=== PATIENT | female | born 1950 | race Caucasian/White ===

== ENCOUNTER 2021-09-02 13:11 | Outpatient (CLI) | payer MEDICARE, SELFPAY ==
--- NOTE | 2021-09-02 13:30 | CT_ITS ---
WS: [email or web address] CT CHEST CT-HIGH RESOLUTION, NONCONTRAST. HISTORY: High calcium. Technique: High-resolution chest CT is performed in inspiration, expiration, supine and prone maylino rahul. All CT scans at [facility] use at least one of these dose optimization techniques: automated exposure control; mA and/or kV adjustment per patient size (includes targeted exams where dose is mat ched to clinical indication); or iterative reconstruction. DLP: 1927.95 mGy.cm COMPARISON: None. Findings: Lungs are well aerated. No honeycombing or traction bronchiectasis. No significant thickeni ng of the distal airways. There are no areas of atelectasis. No lobar collapse or pneumonia. No endob ronchial lesions. No pericardial or pleural effusions. Mild atherosclerosis aorta. Heart size is very mildly enlarged. Small hiatal hernia. Nonobstructing calcification upper pole of the LEFT no adrenal mass. Cholelithia sis without acute cholecystitis. Kidney. CT/CT chest wo con [id number] Impression: 1. No evidence for interstitial lung disease. 2. No honeycombing or bronchiectasis. 3. No pneumonia. 4. Cholelithiasis without acute cholecystitis.
== END 2021-09-02 13:12 | disposition home or self-care (01) ==
PROVIDERS: Visit Provider Internal Medicine Pulmonary Disease
DX: D86.9 Sarcoidosis, unspecified (principal); J84.9 Interstitial pulmonary disease, unspecified; K80.20 Calculus of gallbladder without cholecystitis without obstruction
CPT/HCPCS: 71250

== ENCOUNTER 2022-01-19 08:22 | Outpatient (CLI) | payer MEDICARE, SELFPAY ==
--- NOTE | 2022-01-19 08:33 | MM_ITS ---
WS: [email or web address] SCREENING DIGITAL BREAST TOMOSYNTHESIS MAMMOGRAM WITH CAD HISTORY: Z12.31 - Encounter for screening mammogram for malignant ... COMPARISON: 05/16/2017 and 08/02/2012 Bilateral CC and MLO with tomosynthesis views submitted. Synthetic mammography reviewed. Computer aid ed detection analyzed. Breast composition: There are scattered areas of fibroglandular density. No suspicious masses, microc alcifications or architectural distortion. MM/[place] [id number] IMPRESSION: BI-RADS: 1-Negative FOLLOW UP: 1 Year Follow-up
== END 2022-01-19 08:23 | disposition home or self-care (01) ==
PROVIDERS: PCP Family Medicine; Visit Provider Family Medicine
DX: Z12.31 Encounter for screening mammogram for malignant neoplasm of breast (principal)
CPT/HCPCS: 77063; 77067

== ENCOUNTER → 2022-06-02 13:33 | Outpatient (BNVA) | payer MEDICARE, SELFPAY | PROVIDERS: PCP Family Medicine; Visit Provider Family Medicine | DX: R05.9 Cough, unspecified (principal); R50.9 Fever, unspecified | CPT/HCPCS: 87400 ==

== ENCOUNTER → 2022-11-02 08:54 | Outpatient (BNVA) | payer MEDICARE, SELFPAY | PROVIDERS: PCP Family Medicine; Visit Provider Family Medicine | DX: I10 Essential (primary) hypertension (principal); D64.9 Anemia, unspecified; E78.5 Hyperlipidemia, unspecified; E11.9 Type 2 diabetes mellitus without complications; E55.9 Vitamin D deficiency, unspecified | CPT/HCPCS: 80053; 80061; 82306; 83036; 84443; 85025 ==

== ENCOUNTER → 2023-01-09 08:49 | Outpatient (BNVA) | payer MEDICARE, SELFPAY | PROVIDERS: PCP Family Medicine; Visit Provider Family Medicine | DX: E11.9 Type 2 diabetes mellitus without complications (principal) | CPT/HCPCS: 80048 ==

== ENCOUNTER 2023-01-30 10:13 | Outpatient (CLI) | payer MEDICARE, SELFPAY ==
--- NOTE | 2023-01-30 10:30 | MM_ITS ---
WS: [email or web address] BILATERAL SCREENING DIGITAL TOMOSYNTHESIS MAMMOGRAM WITH CAD HISTORY: SCREENING COMPARISON: 01/19/2022, 05/16/2017 Bilateral CC and MLO views with tomosynthesis and synthetic mammography submitted. Computer aided det ection analyzed. Breast composition: There are scattered areas of fibroglandular density. No suspicious masses, microc alcifications or architectural distortion. MM/[place] [id number] IMPRESSION: BI-RADS: 1-Negative FOLLOW UP: 1 Year Follow-up
== END 2023-01-30 10:14 | disposition home or self-care (01) ==
PROVIDERS: PCP Family Medicine; Visit Provider Family Medicine
DX: Z12.31 Encounter for screening mammogram for malignant neoplasm of breast (principal)
CPT/HCPCS: 77063; 77067

== ENCOUNTER → 2023-07-06 12:07 | Outpatient (BNVA) | payer MEDICARE, SELFPAY | PROVIDERS: PCP Family Medicine; Visit Provider Nurse Practitioner Family | DX: E11.9 Type 2 diabetes mellitus without complications (principal); I10 Essential (primary) hypertension; E78.5 Hyperlipidemia, unspecified | CPT/HCPCS: 80053; 80061; 82043; 83036; 83721 ==

== ENCOUNTER → 2024-01-25 11:14 | Outpatient (BNVA) | payer MEDICARE, SELFPAY | PROVIDERS: PCP Family Medicine; Visit Provider Nurse Practitioner Family | DX: I10 Essential (primary) hypertension (principal); E78.2 Mixed hyperlipidemia; E11.59 Type 2 diabetes mellitus with other circulatory complications; Z79.4 Long term (current) use of insulin; I65.23 Occlusion and stenosis of bilateral carotid arteries | CPT/HCPCS: 80053; 80061; 83036; 83721; 85025 ==

== ENCOUNTER 2024-02-01 11:07 | Outpatient (CLI) | payer MEDICARE, SELFPAY ==
--- NOTE | 2024-02-01 11:08 | MM_ITS ---
WS: [email or web address] BILATERAL SCREENING DIGITAL TOMOSYNTHESIS MAMMOGRAM WITH CAD HISTORY: Screening COMPARISON: 01/19/2022, 01/30/2023, 08/02/2012 Bilateral CC and MLO views with tomosynthesis and synthetic mammography submitted. Computer aided det ection analyzed. Breast composition: There are scattered areas of fibroglandular density. No suspicious masses, microc alcifications or architectural distortion. Long-term stability of an ovoid mass measuring 10 x 6 mm i n the posterior RIGHT breast. This mass has been present since at least 2012 with no change. No suspi cious grouping of calcifications. MM/[place] [id number] IMPRESSION: BI-RADS: 2-Benign FOLLOW UP: 1 Year Follow-up
== END 2024-02-01 11:08 | disposition home or self-care (01) ==
LOC: RAD 11:08
PROVIDERS: PCP Family Medicine; Visit Provider Family Medicine
DX: Z12.31 Encounter for screening mammogram for malignant neoplasm of breast (principal)
CPT/HCPCS: 77063; 77067

== ENCOUNTER 2024-06-20 14:53 | Outpatient (CLI) | payer MEDICARE, SELFPAY ==
--- NOTE | 2024-06-20 15:00 | XR_ITS ---
WS: [email or web address] SCREENING DEXA SCAN [employer]yx CLINICAL INFORMATION: Z78.0 - Asymptomatic menopausal state COMPARISON: None. FINDINGS: The LEFT forearm bone mineral density measures 0.612. This corresponds to a T score score of -3.0 and Z score of -0.8. Left femoral neck bone mineral density measures 0.737 g/cm2. This corresponds to a T score of -2.1 an d Z score of -0.3. Right femoral neck bone mineral density measures 0.739 g/cm2. This corresponds to a T score -2.1of an d Z score of -0.3. Mean femoral neck bone mineral density measures 0.738 g/cm2. This corresponds to a T score of -2.1 an d Z score of -0.3. XR/XR DEXA axial skeleton* [id number] IMPRESSION: Osteoporosis LEFT forearm. Osteopenia femoral necks. Patient's FRAX calculated 10 year probability for major osteoporotic fracture i s 36.2% and osteoporotic hip fracture is 26.3%.
== END 2024-06-20 14:54 | disposition home or self-care (01) ==
PROVIDERS: PCP Nurse Practitioner Family; Visit Provider Nurse Practitioner Family
DX: Z13.820 Encounter for screening for osteoporosis (principal); M81.0 Age-related osteoporosis without current pathological fracture; Z78.0 Asymptomatic menopausal state
CPT/HCPCS: 77080

== ENCOUNTER 2024-07-03 06:00 | Outpatient (RCR) | payer MEDICARE, SELFPAY | END 2024-08-02 23:59 | disposition home or self-care (01) | LOC: TPT 06:00 | PROVIDERS: PCP Nurse Practitioner Family; Visit Provider Nurse Practitioner Family | DX: S46.111S Strain of muscle, fascia and tendon of long head of biceps, right arm, sequela (principal); X58.XXXS Exposure to other specified factors, sequela | CPT/HCPCS: 97110; 97161 ==

== ENCOUNTER → 2024-07-10 14:35 | Outpatient (BNVA) | payer MEDICARE, SELFPAY | PROVIDERS: PCP Nurse Practitioner Family; Visit Provider Nurse Practitioner Family | DX: E11.59 Type 2 diabetes mellitus with other circulatory complications (principal); I65.23 Occlusion and stenosis of bilateral carotid arteries; Z79.4 Long term (current) use of insulin; Z79.899 Other long term (current) drug therapy | CPT/HCPCS: 80053; 80061; 82043; 82306; 83036; 83721; 84443; 85025 ==

== ENCOUNTER 2024-08-03 06:30 | Outpatient (RCR) | payer MEDICARE, SELFPAY | END 2024-08-30 23:59 | disposition home or self-care (01) | LOC: TPT 06:30 | PROVIDERS: PCP Nurse Practitioner Family; Visit Provider Nurse Practitioner Family | DX: S46.111S Strain of muscle, fascia and tendon of long head of biceps, right arm, sequela (principal); X58.XXXS Exposure to other specified factors, sequela | CPT/HCPCS: 97110 ==

== ENCOUNTER 2024-08-31 06:00 | Outpatient (RCR) | payer MEDICARE, SELFPAY | END 2024-09-30 23:59 | disposition home or self-care (01) | LOC: TPT 06:00 | PROVIDERS: PCP Nurse Practitioner Family; Visit Provider Nurse Practitioner Family | DX: S46.111D Strain of muscle, fascia and tendon of long head of biceps, right arm, subsequent encounter (principal); X58.XXXD Exposure to other specified factors, subsequent encounter | CPT/HCPCS: 97110 ==

== ENCOUNTER → 2024-12-11 14:29 | Outpatient (BNVA) | payer MEDICARE, SELFPAY | PROVIDERS: PCP Nurse Practitioner Family; Visit Provider Nurse Practitioner Family | DX: E11.59 Type 2 diabetes mellitus with other circulatory complications (principal); Z79.4 Long term (current) use of insulin; I65.23 Occlusion and stenosis of bilateral carotid arteries; I10 Essential (primary) hypertension | CPT/HCPCS: 80053; 80061; 83036; 84443; 85025 ==

== ENCOUNTER 2024-12-18 07:46 | Outpatient (CLI) | payer MEDICARE, SELFPAY ==
--- NOTE | 2024-12-18 08:30 | US_ITS ---
WS: [email or web address] RIGHT UPPER QUADRANT ULTRASOUND HISTORY: R10.11 - Right upper quadrant pain COMPARISON: None available. Liver: 14.3 cm in length. Normal size liver and echogenicity. No bile duct dilatation or mass. Portal Vein: Normal hepatopetal flow with monophasic waveform. Gallbladder: Cholelithiasis. No evidence for acute cholecystitis. No wall thickening. CBD: 0.4 cm Pancreas: Normal size and echogenicity. Right kidney: 9.7 cm in length. Normal size and echogenicity. No hydronephrosis or mass. Aorta and IVC: Unremarkable abdominal aorta and IVC. No ascites. US/US gall bladder [id number] IMPRESSION: Cholelithiasis without evidence for acute cholecystitis. No biliary duct dilatation.
== END 2024-12-18 07:47 | disposition home or self-care (01) ==
LOC: RAD 07:48
PROVIDERS: PCP Nurse Practitioner Family; Visit Provider Nurse Practitioner Family
DX: R10.11 Right upper quadrant pain (principal); K80.20 Calculus of gallbladder without cholecystitis without obstruction
CPT/HCPCS: 76705

== ENCOUNTER 2025-02-02 12:57 | Inpatient (IN) | payer MEDICARE, SELFPAY ==
[2025-02-02] VITALS (22 sets, daily range): BP systolic 80–142; BP diastolic 43–80; PULSE 94–129; RESP 14–23; TEMP 36.7–38.9; O2SAT 84–100; BMI 23.1
--- NOTE | 2025-02-02 13:05 | XRR_ITS ---
PROCEDURE INFORMATION: Exam: XR Chest Exam date and time: 02/02/2025 1:17 PM Age: 74 years old Clinical indication: Pain; Other: Epigastric; Additional info: N/v TECHNIQUE: Imaging protocol: Radiologic exam of the chest. Views: 1 view. COMPARISON: CT chest wo con [id number] 09/02/2021 1:32 PM FINDINGS: Lungs: Unremarkable. No consolidation. Pleural spaces: Unremarkable. No pleural effusion. No pneumothorax. Heart/Mediastinum: Unremarkable. No cardiomegaly. Bones/joints: Moderate degenerative disease of bilateral acromioclavicular joints. There are mild degenerative changes of the glenohumeral joint. The thoracic spine demonstrates mild degenerative changes at multiple levels. XR/XR chest 1V portable [id number] IMPRESSION: No acute cardiopulmonary process.
--- OUTSIDE RECORDS SUMMARY | 2025-02-02 13:06 | XMS_ITS | Clinical Summary ---
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 Name Role Phone Tuyet Fontenot MD Primary Care Provider Allergies No known active allergies Medications aspirin 81 MG EC tablet Take 81 mg by mouth one (1) time a day Active simvastatin (ZOCOR) 20 MG tablet Take 20 mg by mouth nightly Active clopidogrel (PLAVIX) 75 mg tablet Take 75 mg by mouth one (1) time a day Active cholecalciferol (VITAMIN D3) 1,000 unit (25 mcg) tablet Take 1 tablet by mouth one (1) time a day Active metoprolol succinate (TOPROL-XL) 25 MG 24 hr tablet Take one-half tablet (12.5 mg total) by mouth one (1) time a day 2 Active Additional Information Patient taking differently: 25 mgOral Daily, Reported on 03/30/2023 insulin syringe-needle U-100 1 mL 31 gauge x 5/16 Syrg Use for injecting insulin 1 time per day. 50 each 3 2 Active LANTUS U-100 INSULIN 100 unit/mL SC injection Use up to 30 units daily 10 mL 8 3 Active Additional Information Patient taking differently: 30 Units Subcutaneous Nightly, (No instructions reported), Reported on 03/30/2023 blood glucose test strip (ONETOUCH ULTRA TEST) Strp USE 1 STRIP TO CHECK GLUCOSE THREE TIMES DAILY 300 each 3 Active VICTOZA 3-AJAY 0.6 mg/0.1 mL (18 mg/3 mL) SC pen injector Inject 0.2 mL (1.2 mg total) under the skin one (1) time a day 3 Active metFORMIN (GLUCOPHAGE) 500 MG tablet Take one tablet (500 mg total) by mouth in the morning and one tablet (500 mg total) in the evening. Take with meals. 60 tablet 11 3 Active glimepiride (AMARYL) 2 MG tablet Take 1 tablet by mouth twice daily 180 tablet 3 Active pioglitazone (ACTOS) 15 MG tablet Take 1 tablet by mouth once daily 90 tablet 3 Active ferrous sulfate 325 MG (65 FE) tabletIndicatio ns:Iron deficiency anemia, unspecified Take 1 tablet by mouth once daily with breakfast 90 tablet 3 4 Active Active Problems Problem Noted Date Diagnosed Date Diverticulosis 08/30/2022 Chronic kidney disease (CKD), stage III (moderat e) ([facility] ) 03/29/2021 Hypercalcemia 12/10/2020 Proteinuria due to type 2 diabetes mellitus ([facility] ) 12/10/2020 Type 2 diabetes mellitus treated with insulin ([facility] ) 06/20/2017 Overview (06/20/2017): 2000 Hyperlipidemia 06/20/2017 Encounters Date Type Department Care Team Description 11/09/2024 Karly FREIRE [facility] Nephrology [address] [place] [address] Aron Kelley MD Iron deficiency anemia, unspecified (Primary Dx) from Last 3 Months Immunizations Immunization Administration Dates Next Due Hepatitis B 04/16/1991,11/30/1990,10/19/1990 Influenza Inj. QIV (PF) 03/28/2016 Influenza TIV historical 04/07/2012 Pneumococcal (Historical) 12/31/2012 Zoster Vaccine Recombinant 04/17/2019,10/18/2018 Family History Medical History Relation Name Comments Diabetes Father Heart attack Father High Blood Pressure Mother Diabetes Paternal Uncle End Stage Renal Disease Paternal Uncle Diabetes Sister End Stage Renal Disease Sister Heart failure Sister Relation Name Status Comments Father Mother Alive Paternal Uncle Sister Social History Tobacco Use Types Packs/Day Years Used Date Smoking Tobacco: Never Smokeless Tobacco: Never Tobacco Cessation:Counseling Given: Not Answered Alcohol Use Standard Drinks/Week Comments Never 0 (1 standard drink = 0.6 oz pur e alcohol) Comments No Sex and Gender Information Value Date Recorded Sex Assigned at Female 05/03/2021 8:21 AM CDT 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 Gender Identity Female 05/03/2021 8:21 AM CDT Sexual Orientation Straight 05/03/2021 8: 21 AM CDT Last Filed Vital Signs Vital Sign Reading Time Taken Comments Blood Pressure 118/78 03/30/2023 8:37 AM CDT Pulse 77 03/30/2023 8:37 AM CDT Temperature - - Respiratory Rate 18 03/24/2022 1:30 PM CDT Oxygen Saturation 99% 03/30/2023 8:37 AM CDT Inhaled Oxygen Concentration - - Weight 74.4 kg (164 lb) 03/30/2023 8:37 AM CDT Height 162.6 cm (5' 4 ) 03/30/2023 8:37 AM CDT Body Mass Index 28.15 03/30/2023 8:37 AM CDT Plan of Treatment Health Maintenance Due Date Last Done Comments Colonoscopy Every 6 Months 1949 Colorectal Cancer Screening Annual FOBT/FIT Test 1949 Colorectal Cancer Screening Cologuard 1949 Colorectal Cancer Screening Flex Sigmoidoscopy 1949 Annual Depression Screening 1960 Hepatitis C Antibody Screen 1967 Colorectal CA Screen 10 Year Colonoscopy 1994 Colorectal Cancer Screening 1994 Pneumococcal Vaccine Age 50+ (2 of 2 - PPSV23) 02/25/2013 12/31/2012 Bone Density 2014 Diabetic Foot Exam 06/20/2017 Kidney Health Eval - uACR 12/20/2018 12/20/2017 Diabetic Eye Exam WITHOUT Retinopathy 09/09/2023 09/08/2021 Glycosylated Hemoglobin 03/30/2024 03/30/20 23, 03/24/2022, 10/29/2019, Additional history exists Kidney Health Eval - eGFR 03/30/20242022, 03/24/2022, 08/09/2021, Additional history exists RSV Immunization Patients or 60+ Years (1 - 1-dose 75+ series) 2024 Influenza Vaccine 03/03/2025 03/28/2016, 04/07/2012 Diabetic Annual Microalbumin Discontinued 11/05/2019, 12/20/2017 Procedures Procedure Name Priority Date/Time Associated Diagnosis Comments COMPREHENSIVE METABOLIC PANEL Routine 03/30/2023 9:05 AM CDT Type 2 diabetes mellitus treated with insulin (HCC ) HEMOGLOBIN A1C Routine 03/30/2023 9:05 AM CDT Type 2 diabetes mellitus treated with insulin (HCC ) MICROALBUMIN/CREATININ E URINE RANDOM Routine 12/20/2017 10:57 AM CDT Type 2 diabetes mellitus not at goal (HCC ) from Last 3 Months or Most Recently Relevant to Health Maintenance Results * (ABNORMAL) Hemoglobin A1c (03/30/2023 9:05 AM CDT) Hemoglobin A1c 9.5(H) 4.5 - 6.2 % 03/30/2023 2:27 PM CDT [facility] Estimated average glucose 226 03/30/2023 2:27 PM CDT [facility] Blood Venipuncture / Unknown 03/30/2023 9:05 AM CDT 03/30/2023 9:07 AM CDT Nathan Carpio MD LAB BLOOD ORDERABLES Mitzy l Result [facility] [address] [place] [address] * (ABNORMAL) Comprehensive Metabolic Panel (03/30/2023 9:05 AM CDT) Sodium 139 135 - 145 mmol/L 03/30/2023 9:56 AM CDT [facility] Potassium 4.4 3.5 - 5.0 mmol/L 03/30/2023 9:56 AM CDT [facility] Chloride 102 98 - 107 mmol/L 03/30/2023 9:56 AM CDT [facility] Carbon Dioxide 27 21 - 32 mmol/L 03/30/2023 9:56 AM CDT [facility] Anion Gap 10 6 - 16 mmol/L 03/30/2023 9:56 AM CDT [facility] Glucose 309(H) 70 - 110 mg/dL 03/30/2023 9:56 AM CDT [facility] BUN 20(H) 7 - 18 mg/dL 03/30/2023 9:56 AM CDT [facility] Creatinine 1.00 0.60 - 1.30 mg/dL 03/30/2023 9:56 AM CDT [facility] BUN/Creatinine Ratio 20.0 11.7 - 13.9 03/30/2023 9:56 AM CDT [facility] Calcium 9.3 8.5 - 10.1 mg/dL 03/30/2023 9:56 AM CDT [facility] Comment:Calcium measurements are adversely affected by the use of Omniscan during MRI. Analysis of calcium is not recommended for 12 to 24 hours after the use of the contrast agent. Protein total 7.8 6.4 - 8.2 g/dL 03/30/2023 9:56 AM CDT [facility] Albumin 4.1 3.4 - 5.0 g/dL 03/30/2023 9:56 AM CDT [facility] Bilirubin Total 0.8 0.0 - 1.0 mg/dL 03/30/2023 9:56 AM CDT [facility] AST 32 15 - 46 U/L 03/30/2023 9:56 AM CDT [facility] ALT 19 16 - 62 U/L 03/30/2023 9:56 AM CDT [facility] ALP 93 50 - 136 U/L 03/30/2023 9:56 AM CDT [facility] eGFR non- 54.3(L) >=60.0 mL/min/1.7 3m2 03/30/2023 9:56 AM CDT [facility] eGFR >60.0 >=60.0 mL/min/1.7 3m2 03/30/2023 9:56 AM CDT [facility] Comment:The estimated GFR is based on the Modification of Diet in Renal Disease Study (MDRD) equation using average adult body surface area. This equation has not been validated for use with age groups below 18 or over 70, women, patients with serious co-morbid conditions, or persons with extremes of body size, muscle mass or nutritional status. Blood Venipuncture / Unknown 03/30/2023 9:05 AM CDT 03/30/2023 9:07 AM CDT us Nathan Carpio MD LAB BLOOD ORDERABLES Mitzy l Result Performing Organization Address [facility] [place] [facility] Co de Phone Number [facility] [address] [phone] * (ABNORMAL) Microalbumin / Creatinine Urine Ratio (12/20/2017 10:57 AM CDT) Creatinine Urine 200.00 10.00 - 300.00 mg/dL 12/20/2017 11:49 AM CDT [facility] Microalbumin urine 30(H) <=20 mg/L 12/20/2017 11:49 AM CDT [facility] Microalbumin/cre atinine urine <30 mg/g creatinine 12/20/2017 11:49 AM CDT [facility] Urine Collection / Unknown 12/20/2017 10:57 AM CDT 12/20/2017 10:59 AM CDT us Marilynn Justice MANAGER FIRE URINE ORDERABLES Final Resul t Performing Organization Address [facility] [place] [facility] Co de Phone Number [facility] [address] [place], [place] [phone] from Last 3 Months or Most Recently Relevant to Health Maintenance Insurance MEDICARE [employer]V [employer] [id number] Care Teams 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
--- OUTSIDE RECORDS SUMMARY | 2025-02-02 13:06 | XMS_ITS | Patient Health Record ---
Author Organization [facility] [address] Address [address] [address] Care Team Providers Care Underwriting Analyst Name Role Phone Jin Wan [phone] Reason For Referral No Information Medications Medication SIG (Take, Route, Frequency, Duration) Notes Start Date End Date Status Alendronate Sodium 70 MG 1 tablet Orally ; Duration: 30 day(s) Active Simvastatin 20 MG 1 tablet in the even ing Orally Once a day; Duration: 30 day(s) Active Lisinopril 5 MG 1 tablet Orally Once a day; Duration: 30 day(s) Active metFORMIN HCl 1000 MG 1 tablet with a me al Orally BID Active Aspirin 81 MG 1 tablet Orally Once a day; Duration: 30 day(s) Active Calcium 600 MG 1 tablet with meals Orally Twice a day; Duration: 30 day(s) Active Glimepiride 2 MG 1 tablet with breakf ast or the first main meal of the day Orally BID Active Plavix 75 MG 1 tablet Orally Once a day; Duration: 30 day(s) Active Metoprolol Succinate ER 25 MG 1 tablet Orally Once a day; Duration: 30 day(s) Active Ranitidine HCl 75 MG 1 tablet as needed Orally Twice a day Active Biotin 16490 MCG 1 tablet Orally Once a day; Duration: 30 day(s) Active Social History Tobacco Use: Social History Observation Description Date Details (start date - stop date) Never Smoker NA - NA Smoking: Question Answer Notes Are you a: nonsmoker Problems Problem Type SNOMED Code ICD Code Onset Dates Problem Status W/U Status Risk Notes Problem Tachycardia (4381102) Tachycardia (R00.0) Active confirmed Problem Transient ischemic attack (340513706) TIA (transient ischemic attack) (G45.9) Active confirmed Problem Postprocedural states (428944476) 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) Active confirmed Problem Abnormal computed tomography angiography (CTA) of neck (R93.89) Active confirmed Plan Of Treatment Pending Test Test Name Order Date Electrocardiogram (EKG) 04/29/2019 Future Test Test Name Order Date CTA Carotid arteries, [place] 0 09/20/2018 TELEMETRY REVIEW/TECH SUPP 09/20/2018 Event Monitor 09/21/2018 Insurance Providers Payer Name Payer Address Payer Phone Subscriber Number Group Number Insured Name Patient Relationship to Insured Coverage Start Date Coverage End Date [facility] Blake/[employer]a mcclure [address] [address] [place] [address] [id number] Monica Moore Self - patient is the insured Medical (General) History Medical History History ICD Code diabetes type 2 hyperlipidemia wpw 2003 acid reflux Surgical History Surgery Date(Month/Year) wpw ablation [facility] [place] 2002 bunionectomy hysterectomy spinal fusion Hospitalization History Reason Date(Month/Year) stroke like symptoms- Jennifer Barrera 09/14/18
[2025-02-02 13:25] LABS: Hematocrit 39.6 % (36-47); Hemoglobin 13.20 g/dL (11.27-16.99); Mean Corpuscular HGB Conc 33.3 g/dL (30-55); Mean Corpuscular Hemoglobin 30.1 pg (27-33); Mean Corpuscular Volume 90.2 fl (85-98); Nucleated Red Blood Cells % 0 %; Platelet Count 240 10^3/cmm (157-399); Red Blood Count 4.39 10^6/uL (3.85-5.65); White Blood Count 11.79 10^3/uL (3.29-11.43)
[2025-02-02 13:37] LABS: INR 0.90 (0.8-1.2); Prothrombin Time 12.80 SECONDS (12.1-14.9)
[2025-02-02 13:38] LABS: Partial Thromboplastin Time 45.2 SECONDS (23.9-36.7)
[2025-02-02 13:42] LABS: Troponin(5th) Baseline 19 ng/L (0-10)
[2025-02-02 13:44] LABS: Lactic Sepsis W/Reflex 1.7 mmol/L (0.5-2.2)
[2025-02-02 13:51] LABS: Glucose Urine UA 3+ (Normal); Nitrate Urine Negative (Negative); Specific Gravity, Urine 1.022 (1.005-1.030)
[2025-02-02 13:53] LABS: Alanine Aminotransferase 13 U/L (0-33); Albumin Level 4.4 g/dL (3.5-5.2); Alkaline Phosphatase 62 U/L (35-105); Anion Gap 18.4 (5-19); Aspartate Amino Transferase 15 U/L (0-32); Blood Urea Nitrogen 27 mg/dL (8-23); Calcium 9.8 mg/dL (8.5-10.5); Carbon Dioxide 22 mmol/L (22-29); Chloride 100 mmol/L (98-107); Globulin 3.2 g/dL (1.3-4.6); Glucose 248 mg/dL (65-115); Magnesium 2.3 mg/dL (1.7-2.3); Osmolality Calculated 295 mOsm/kg (285-295); Potassium 4.4 mmol/L (3.5-5.1); Sodium 136 mmol/L (136-145); Thyroid Stimulating Hormone 1.76 uIU/mL (0.27-4.20); Total Protein 7.6 g/dL (6.6-8.7)
--- NOTE | 2025-02-02 13:53 | W.ED.NAVMDI ---
HPI - Nausea/Vomiting/Diarrhea General: Chief complaint: Nausea/Vomiting/Diarrhea Stated complaint: N/V chills Time Seen by Provider: 02/02/25 13:03 Source: patient Mode of arrival: ambulatory Limitations: no limitations History of Present Illness: Patient is a 74-year-old female who presents the emergency department with nausea and vomiting beginning this morning. She also states for the last few days she has had symptoms of urinary urgency and dysuria, and has also been overall weak and napping more. Has only vomited the 1 time, states this occurred after she ate something. She arrives with soft blood pressure, tachycardic and febrile though she denies running temperature at home. She reports a history of stroke as well as diabetes, also notes she recently had a Mohs procedure and just finished doxycycline. She is not reporting any chest pain or shortness of breath, and no abdominal pain. She is not confused or altered, in the room states she has been acting appropriately other than being more tired than usual. No focal neurological deficits. MD elicited complaint: nausea and vomiting Onset (ago): hour(s) Description of vomiting: food contents Associated nausea: Yes Associated abdominal pain: No Location of pain: None Associated symtoms: Reports dysuria, fatigue and nausea; Denies chest pain, diaphoresis, dizziness, headache(s) or palpitations Related Data Home Medications ?Medication ?Instructions ?Recorded ?Confirmed aspirin 81 mg tablet,delayed 81 mg PO DAILY 08/04/21 12/11/24 release ferrous sulfate 325 mg (65 mg 325 mg PO DAILY 08/04/21 12/11/24 iron) tablet cholecalciferol (vitamin D3) 25 25 mcg PO DAILY 07/06/23 12/11/24 mcg (1,000 unit) capsule Previous Rx's ?Medication ?Instructions ?Recorded salicylic acid 2 % topical cream 1 applic topical DAILY #200 mL 07/06/23 (CeraVe Psoriasis) clopidogrel 75 mg tablet (Plavix) 75 mg PO DAILY 90 days #90 tabs 03/14/24 metoprolol succinate 25 mg 25 mg PO DAILY 90 days #90 tabs 03/14/24 tablet,extended release 24 hr triamcinolone acetonide 0.5 % 1 applic topical TID #60 grams 03/14/24 topical cream ciprofloxacin 0.3 %-dexamethasone 4 drp otic (ear) BID 7 days #7.5 mL 06/14/24 0.1 % ear drops,suspension alendronate 70 mg tablet See Rx Instructions .Route 10/29/24 .COMPLEX #12 tabs empagliflozin 25 mg tablet 25 mg PO QAM #90 tabs 12/11/24 (Jardiance) fenofibrate 160 mg tablet 160 mg PO DAILY #90 tabs 12/11/24 glimepiride 2 mg tablet 2 mg PO BID 90 days #180 tabs 12/11/24 pantoprazole 40 mg tablet,delayed 40 mg PO DAILY #30 tabs 12/11/24 release (Protonix) semaglutide 1 mg/dose (4 mg/3 mL) See Rx Instructions .Route 12/20/24 subcutaneous pen injector .COMPLEX #3 mL Allergies Allergy/AdvReac Type Severity Reaction Status Date / Time No Known Allergies Allergy Verified 02/02/25 13:04 Review of Systems General: Reports: 10 or more systems reviewed and unremarkable except in HPI and below Const: Reports: change in appetite and fatigue; Denies: fever(s), chills, change in weight or diaphoresis ENMT: Denies: throat pain or hoarseness Card: Denies: chest pain, palpitations or lightheadedness Resp: Denies: dyspnea, productive cough or wheezing GI: Reports: nausea and vomiting; Denies: abdominal pain or diarrhea : Reports: dysuria, urinary frequency and urinary urgency; Denies: flank pain or difficulty voiding Musc: Denies: neck pain or back pain Skin/Breast: Denies: rash or new lesions Neuro: Reports: weakness in extremities; Denies: headache(s), dizziness, confusion or seizure-like activity [facility] ED PFSH: Medical History Osteoporosis Diabetes mellitus Hyperlipidemia Hypertension Social History Smoking and tobacco/nicotine status: never used tobacco/nicotine Second hand smoke exposure: Yes (spouse) Physical Exam Const: COMMON NORMALS: average body habitus, patient oriented x3, no limitations and alert GENERAL APPEARANCE: cooperative ORIENTATION/CONSCIOUSNESS: Yes awake OTHER: Tired appearing HENMT: COMMON NORMALS: normocephalic, atraumatic, hearing grossly normal bilaterally, external ears normal, Normal external nose present and Normal nasal mucous membranes and turbinates present HEAD & SCALP: normocephalic and atraumatic NOSE: Normal external nose present and Normal nasal mucous membranes and turbinates present EXTERNAL EAR: Yes external ears normal OTHER: Dry oral mucosa Eye: COMMON NORMALS: Equal, round and reactive pupils present, EOMs intact bilaterally, conjunctivae normal and normal visual adam by confrontation CONJUNCTIVA: Yes conjunctivae normal PUPIL: Yes Equal, round and reactive pupils present Neck/C-Spine: COMMON NORMALS: full ROM, supple, no meningeal signs and no JVD Resp: COMMON NORMALS: normal respiratory effort, No retractions, No use of accessory muscles and clear to auscultation bilaterally AUSCULTATION: clear to auscultation bilaterally, no crackles, no rales, no rhonchi and no wheezes Cardio: COMMON NORMALS: no JVD, regular rhythm, S1 normal heart sound present, S2 normal heart sound present, No gallops present (Cardio), No clicks present (Cardio), No murmurs present (Cardio) and No rub (Cardio) RATE: tachycardic RHYTHM: regular rhythm HEART SOUNDS: S1 normal heart sound present and S2 normal heart sound present GI: COMMON NORMALS: Normal to inspection, nondistended, normoactive bowel sounds present, Soft to palpation, non-tender, No hepatosplenomegaly present and no masses AUSCULTATION: Yes normoactive bowel sounds PALPATION: Yes Soft to palpation, No Guarding due to palpation present (GI), No Rigid due to palpation and Yes No hepatosplenomegaly present RECTAL EXAM: deferred Extremity: COMMON NORMALS: normal to inspection, full ROM and no pedal edema Neuro: COMMON NORMALS: patient oriented x3, moves all extremities, no focal motor deficits and no sensory deficits noted SENSORIUM/ORIENTATION: Yes alert MENINGEAL SIGNS: Yes no meningeal signs Psych: COMMON NORMALS: mental status grossly normal, cooperative and speech normal SPEECH: Yes normal speech Skin: COMMON NORMALS: no rashes or lesions noted GENERAL SKIN EXAM: no rashes or lesions noted Course Vital Signs: Vital signs: Vital Signs Temperature 102.1 F H 02/02/25 12:58 Pulse Rate 103 H 02/02/25 14:00 Respiratory Rate 19 H 02/02/25 14:00 Blood Pressure 116/60 02/02/25 14:00 Pulse Oximetry 100 02/02/25 14:00 Oxygen Delivery Me thod Room Air 02/02/25 12:58 MDM - Nausea/Vomiting/Diarrhea Medical Decision Making Patient presented for episode of vomiting this morning and nausea. Last few days has been weak with urinary symptoms. On arrival was soft with her pressure, tachycardic and febrile. Sepsis fluid bolus initiated, blood cultures were obtained as well as other labs. White count mildly elevated, her lactic was 1.7. Creatinine has been elevated in the past, today it is 1.6 with BUN 27. ABG overall unremarkable. Urinalysis was overtly infectious, she was able to void here and has continued to make urine. No electrolyte derangement on CMP. First troponin was 19, this will reflex at 2 hours. Chest x-ray does not show any acute cardiopulmonary process. She did appear somewhat dry on physical exam, on recheck pressure noted to come up and heart rate has dropped, and she states that she is feeling better. I spoke with Dr. Luque, who agreed accept patient for observation. Patient started on Rocephin and informed of plan for hospital stay, she agrees and all other questions or concerns addressed at this time. Lab Data 02/02/25 13:18 02/02/25 13:18 Radiology Impressions Chest X-Ray 02/02/25 13:05 IMPRESSION: No acute cardiopulmonary process. Laboratory Results WBC 11.79 10^3/uL (3.29-11.43) H 02/02/25 13:18 RBC 4.39 10^6/uL (3.85-5.65) 02/02/25 13:18 Hgb 13.20 g/dL (11.27-16.99) 02/02/25 13:18 Hct 39.6 % (36-47) 02/02/25 13:18 MCV 90.2 fl (85-98) 02/02/25 13:18 MCH 30.1 pg (27-33) 02/02/25 13:18 MCHC 33.3 g/dL (30-55) 02/02/25 13:18 RDW 12.1 % (12.1-15.1) 02/02/25 13:18 Plt Count 240 10^3/cmm (157-399) 02/02/25 13:18 MPV 9.1 fL (7.4-10.4) 02/02/25 13:18 Neut % (Auto) 86.1 % 02/02/25 13:18 Lymph % (Auto) 5.9 % 02/02/25 13:18 [place] % (Auto) 7.0 % 02/02/25 13:18 Eos % (Auto) 0.3 % 02/02/25 13:18 Baso % (Auto) 0.3 % 02/02/25 13:18 Neut # (Auto) 10.15 10^3/uL (1.8-7.7) H 02/02/25 13:18 Lymph # (Auto) 0.7 10^3/uL (0.8-4.8) L 02/02/25 13:18 [place] # (Auto) 0.8 10^3/uL (0.2-0.9) 02/02/25 13:18 Eos # (Auto) 0.0 10^3/uL (0.0-0.8) 02/02/25 13:18 Baso # (Auto) 0.0 10^3/uL (0.0-0.1) 02/02/25 13:18 Nucleated RBC % (auto) 0 % 02/02/25 13:18 Nucleated RBCs # 0.0 /100WBC 02/02/25 13:18 PT 12.80 SECONDS (12.1-14.9) 02/02/25 13:18 INR 0.90 (0.8-1.2) 02/02/25 13:18 APTT 45.2 SECONDS (23.9-36.7) H 02/02/25 13:18 Specimen Type Arterial 02/02/25 13:46 Sample Site Brachial, left 02/02/25 13:46 ABG pH 7.50 (7.35-7.45) H 02/02/25 13:46 ABG pCO2 26.9 mmHg (35-45) L 02/02/25 13:46 ABG pO2 86.4 mmHg (80.0-100.0) 02/02/25 13:46 ABG PO2/FiO2 Ratio 411 02/02/25 13:46 ABG HCO3 21.1 mmol/L (22-26) L 02/02/25 13:46 ABG O2 Saturation 98.0 02/02/25 13:46 ABG Base Excess -1.1 mmol/L (-2.0-2.0) 02/02/25 13:46 Thanh Test N/a 02/02/25 13:46 A-a O2 Gradient 3.7 mmHg (5-10) L 02/02/25 13:46 Hematocrit 35.3 % (37-47) L 02/02/25 13:46 Hgb O2 Saturation 96.1 % (95-100) 02/02/25 13:46 Carboxyhemoglobin 1.1 %THgb (0.4-20.1) 02/02/25 13:46 Methemoglobin 0.8 % (0.4-1.5) 02/02/25 13:46 Total Hemoglobin 11.5 g/dL (12-16) L 02/02/25 13:46 Sodium 140.0 mmol/L (131-143) 02/02/25 13:46 Potassium 3.5 mmol/L (3.5-5.0) 02/02/25 13:46 Glucose 203.0 mg/dL (70-115) H 02/02/25 13:46 Ionized Calcium 1.1 mmol/L (1.1-1.4) 02/02/25 13:46 O2 Delivery Device Room air 02/02/25 13:46 FiO2 21.0 % 02/02/25 13:46 Vocational Counselor ID Amh 02/02/25 13:46 Sodium 136 mmol/L (136-145) 02/02/25 13:18 Potassium 4.4 mmol/L (3.5-5.1) 02/02/25 13:18 Chloride 100 mmol/L (98-107) 02/02/25 13:18 Carbon Dioxide 22 mmol/L (22-29) 02/02/25 13:18 Anion Gap 18.4 (5-19) 02/02/25 13:18 BUN 27 mg/dL (8-23) H 02/02/25 13:18 Creatinine 1.6 mg/dL (0.5-0.9) H 02/02/25 13:18 GFR Calculation Not Reportable 02/02/25 13:18 Glucose 248 mg/dL (65-115) H 02/02/25 13:18 Calculated Osmolality 295 mOsm/kg (285-295) 02/02/25 13:18 Lactic Acid 1.7 mmol/L (0.5-2.2) 02/02/25 13:18 Calcium 9.8 mg/dL (8.5-10.5) 02/02/25 13:18 Magnesium 2.3 mg/dL (1.7-2.3) 02/02/25 13:18 Total Bilirubin 0.8 mg/dL (0.15-1.2) 02/02/25 13:18 AST 15 U/L (0-32) 02/02/25 13:18 ALT 13 U/L (0-33) 02/02/25 13:18 Alkaline Phosphatase 62 U/L (35-105) 02/02/25 13:18 Troponin T Baseline 19 ng/L (0-10) H 02/02/25 13:18 Total Protein 7.6 g/dL (6.6-8.7) 02/02/25 13:18 Albumin 4.4 g/dL (3.5-5.2) 02/02/25 13:18 Globulin 3.2 g/dL (1.3-4.6) 02/02/25 13:18 TSH 1.76 uIU/mL (0.27-4.20) 02/02/25 13:18 Urine Color [place] (Yellow) A 02/02/25 13:37 Urine Appearance Cloudy (CLEAR) A 02/02/25 13:37 Urine pH 7.0 (5-7) 02/02/25 13:37 Ur Specific [place] 1.022 (1.005-1.030) 02/02/25 13:37 Urine Protein 1+ (Negative) A 02/02/25 13:37 Urine Glucose (UA) 3+ (Normal) H 02/02/25 13:37 Urine Ketones Trace (Negative) 02/02/25 13:37 Urine Blood 3+ (Negative) A 02/02/25 13:37 Urine Nitrate Negative (Negative) 02/02/25 13:37 Urine Bilirubin Negative (Negative) 02/02/25 13:37 Urine Urobilinogen 1.0 mg/dL (Negative) 02/02/25 13:37 Ur Leukocyte Esterase 2+ (Negative) A 02/02/25 13:37 Urine RBC >100 /hpf (0-2) H 02/02/25 13:37 Urine WBC >100 /hpf (0-5) H 02/02/25 13:37 Ur Squamous Epith Cells 0-5 /hpf (0-5) 02/02/25 13:37 Amorphous Sediment Not Reportable 02/02/25 13:37 Urine Bacteria 4+ /hpf (NONE) H 02/02/25 13:37 Hyaline Casts 0-4 /lpf H 02/02/25 13:37 All radiology interpretation(s) finalized by discharge Discharge Plan Discharge Patient Disposition: Placed in Observation Clinical Impression: Urinary tract infection, Dehydration Coding Level of Care Code ED Photography Intern for Raymundo Huerta
[2025-02-02 13:54] LABS: Add Urine Microscopic? YES
[2025-02-02 13:59] LABS: ABG PCO2 26.9 mmHg (35-45); ABG PH Result 7.50 (7.35-7.45); Alveolar-Arterial Oxygen Gradi 3.7 mmHg (5-10); Arterial Blood Gas Hematocrit 35.3 % (37-47); Blood Gas Operator Identificat AMH; Blood Gas Sample Site Brachial, left; Blood Gas Sample Type Arterial; Carboxyhemoglobin 1.1 %THgb (0.4-20.1); Glucose Level-ABG 203.0 mg/dL (70-115); HCO3 ABG 21.1 mmol/L (22-26); Ionized Calcium Level - ABG 1.1 mmol/L (1.1-1.4); Methemoglobin 0.8 % (0.4-1.5); Oxygen Saturation ABG 98.0; PO2 ABG 86.4 mmHg (80.0-100.0); PO2 FiO2 Ratio Arterial Blood 411; Potassium Level - ABG 3.5 mmol/L (3.5-5.0); Sodium Level - ABG 140.0 mmol/L (131-143)
[2025-02-02] MEDS: ondansetron 2 mg/ML SDV 2 mL 4 MG IVP (14:07)
[2025-02-02 14:11] LABS: Creatinine Clr Calc Pharmacy 27.4878
[2025-02-02] MEDS: cefTRIAXone 1,000 mg SDV 1000 MG IVP (14:37)
--- NOTE | 2025-02-02 14:43 | ECG_ITS ---
[facility] Test Date: 2025-02-02 Pat Name: Monica Moore Department: Room: Gender: Female Composition Floor Layer: : 1950 Requested By: Jaydon Waggoner Order Number: [id number] Reading MD: LESLEE ELIZONDO Measurements Intervals [place] Rate: 101 P: 62 CO: 130 QRS: 24 QRSD: 82 T: 55 QT: 337 QTc: 437 Interpretive Statements SINUS TACHYCARDIA LOW QRS VOLTAGE IN PRECORDIAL LEADS [QRS DEFLECTION < 1.0 mV IN CHEST LEADS] NONSPECIFIC T-WAVE ABNORMALITY ABNORMAL RHYTHM ECG No previous ECG available for comparison Electronically Signed On 02-03-2025 14:02:31 CDT by LESLEE ELIZONDO [email or web address]
[2025-02-02 15:32] LABS: Troponin 5 2HR 14.76 ng/L (0-10)
[2025-02-02 15:36] LABS: Troponin 5 2HR Delta -4.24 ABS# (0-10)
--- NOTE | 2025-02-02 17:54 | PM.HP ---
Providers/Chief Complaint Admitting Physician: Marty Luque MD Primary Care Provider: EVELYNE Figueroa Chief Complaint: N/V chills History of Present Illness Monica Moore is a 74 year old female with diabetes and history of right-sided stroke with left hemiplegia 2019 that fully recovered comes in with nausea vomiting dysuria chills fatigue dizziness when standing blurry vision like looking through lace and presented to the emergency department found to have hypotension 80/50 with heart rate 110. She received weight-based fluid bolus but is still hypotensive. Troponin 19 then 120-minute was 14.76. Patient denies chest pain. There is no listing of med allergies. Is not clear why the patient is not on a statin as she has an LDL of 132 and history of stroke plus diabetes Review of Systems Narrative: General Positive for subjective fevers plus chills she has been sleeping all night plus naps for 2 hours daily for the last 4 days. She has had weight loss from 170 pounds down to 134 pounds with Mounjaro and now Ozempic. 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 She had left shoulder numbness and weakness found to have a stroke she retired at that but states she made full recovery Patient reports her usual blood pressure 115/80 heart rate 90 taking metoprolol Medications/Allergies Home Medications ?Medication ?Instructions ?Recorded ?Confirmed ?Last Taken ?Type aspirin 81 mg tablet,delayed 81 mg PO DAILY 08/04/21 02/02/25 02/02/25 History release ferrous sulfate 325 mg (65 mg 325 mg PO DAILY 08/04/21 02/02/25 02/01/25 19:00 History iron) tablet cholecalciferol (vitamin D3) 25 25 mcg PO DAILY 07/06/23 02/02/25 02/02/25 History mcg (1,000 unit) capsule clopidogrel 75 mg tablet (Plavix) 75 mg PO DAILY 90 days #90 tabs 03/14/24 02/02/25 02/02/25 08:00 Rx metoprolol succinate 25 mg 25 mg PO DAILY 90 days #90 tabs 03/14/24 02/02/25 02/02/25 Rx tablet,extended release 24 hr triamcinolone acetonide 0.5 % 1 applic topical TID #60 grams 03/14/24 02/02/25 02/02/25 07:00 Rx topical cream alendronate 70 mg tablet See Rx Instructions .Route 10/29/24 02/02/25 02/02/25 08:00 Rx .COMPLEX #12 tabs empagliflozin 25 mg tablet 25 mg PO QAM #90 tabs 12/11/24 02/02/25 02/02/25 08:00 Rx (Jardiance) fenofibrate 160 mg tablet 160 mg PO DAILY #90 tabs 12/11/24 02/02/25 02/02/25 Rx glimepiride 2 mg tablet 2 mg PO BID 90 days #180 tabs 12/11/24 02/02/25 02/02/25 08:00 Rx semaglutide 1 mg/dose (4 mg/3 mL) See Rx Instructions .Route 12/20/24 02/02/25 01/27/25 Rx subcutaneous pen injector .COMPLEX #3 mL acetaminophen 500 mg tablet 1,000 mg PO QID PRN Fever Or Pain 02/02/25 02/02/25 Unknown History (Tylenol Extra Strength) vitamins A,C,P-ijie-[id number] 2,148 2 tab PO BID 02/02/25 02/02/25 02/02/25 08:00 History mcg-113 mg-45 mg-17.4 mg tablet (PreserVision AREDS) Allergies Allergy/AdvReac Type Severity Reaction Status Date / Time No Known Allergies Allergy Verified 02/02/25 13:04 PFSH Acute PFSH: Medical History (Updated 02/02/25 @ 14:28 by PAUL Damon) Osteoporosis Diabetes mellitus Hyperlipidemia Hypertension Social History Smoking and tobacco/nicotine status: never used tobacco/nicotine Second hand smoke exposure: Yes (spouse) Vitals/I&O/Wt Last Vital Signs Temp 102.1 F H 02/02/25 12:58 Pulse 115 H 02/02/25 15:30 Resp 23 H 02/02/25 15:30 BP 122/78 02/02/25 15:30 Pulse Ox 91 02/02/25 15:30 O2 Del Method Room Air 02/02/25 12:58 02/02/25 02/02/25 02/02/25 06:59 14:59 22:59 Intake Total 1837.05 / 1837.05 Balance 1837.05 / 1837.05 Weight last 48 hrs Weight 61.235 kg Physical Exam Narrative: General Well-developed well-nourished thin female no acute cardiopulmonary distress CV tachycardic rate and regular rhythm Lungs clear to auscultation bilaterally Abdomen positive bowel tones soft nontender Back no flank tenderness no suprapubic tenderness Calves no tenderness cords pretibial edema Skin warm mildly damp Data 02/02/25 13:18 02/02/25 13:18 Micro: Microbiology 02/02/25 13:16 Blood Culture - Preliminary Blood SPECIMEN COLLECTED 02/02/25 13:18 Blood Culture - Preliminary Blood SPECIMEN COLLECTED A&P Assessment and plan 1. Urinary tract infection: Patient with hypotension and blood in the urine but hypotension did respond to fluids and she is not rate requiring pressors. I have low level suspicion for kidney stone as she has no flank tenderness. She will be admitted to the medical floor with additional fluid boluses and continued on Rocephin 1 g IV every 12 hours. 2. Dehydration: Additional fluid boluses hold antihypertensives for now 3. Hypertension: Typically on metoprolol and she states her heart rate tends to be high without it but runs 90 with the med. Hold metoprolol for now 4. Hyperlipidemia: Start atorvastatin 20 mg daily due to history of stroke and LDL of 120 goal would be below 50 5. Diabetes mellitus: Continue Amaryl and a diabetic diet PDMP PDMP Reviewed: Not Reviewed Attestations Medical Necessity Statement*: Anticipate the patient to be in the hospital overnight and home in 1 to 2 days Coding Level of Care Code Acute Code for Chg Fwd Diagnoses Urinary tract infection N39.0 Dehydration E86.0 Hypertension I10 Hyperlipidemia E78.5 Diabetes mellitus E11.9 Time Spent (min) 55
--- NOTE | 2025-02-02 19:05 | ECG_ITS ---
[facility] [place] [facility] Date: 2025-02-03 Pat Name: Monica Moore Department: Room: 250 Gender: Female Technical Documentation Specialist: : 1950 Requested By: Jaydon Waggoner Order Number: [id number] Reading MD: LESLEE ELIZONDO Measurements Intervals [place] Rate: 90 P: 67 HI: 143 QRS: 34 QRSD: 82 T: 51 QT: 348 QTc: 428 Interpretive Statements SINUS RHYTHM Compared to ECG 02/02/2025 14:43:21 Sinus tachycardia no longer present T-wave abnormality no longer present Electronically Signed On 02-03-2025 14:02:19 CDT by LESLEE ELIZONDO [id number]
[2025-02-02] MEDS: sodium chlor 0.9% + KCl 20 mEq 20 MEQ/1,000 ML BAG 100 MEQ IV (20:10)
[2025-02-02 20:23] LABS: Troponin 5 6HR 23.21 ng/L (0-10); Troponin 5 6HR Delta 4.21 ng/L (0-12)
[2025-02-03] VITALS (7 sets, daily range): BP systolic 100–113; BP diastolic 58–64; PULSE 74–93; RESP 16–17; TEMP 36.5–37.1; O2SAT 95–99
[2025-02-03] MEDS: cefTRIAXone 1,000 mg SDV 1000 MG IVP ×2 (02:31→13:58)
[2025-02-03 06:45] LABS: Hematocrit 36.5 % (36-47); Hemoglobin 11.00 g/dL (11.27-16.99); Mean Corpuscular HGB Conc 30.1 g/dL (30-55); Mean Corpuscular Hemoglobin 29.9 pg (27-33); Mean Corpuscular Volume 99.2 fl (85-98); Nucleated Red Blood Cells % 0 %; Platelet Count 200 10^3/cmm (157-399); Red Blood Count 3.68 10^6/uL (3.85-5.65); White Blood Count 17.26 10^3/uL (3.29-11.43)
[2025-02-03 12:18] LABS: Anion Gap 14.9 (5-19); Blood Urea Nitrogen 24 mg/dL (8-23); Calcium 8.4 mg/dL (8.5-10.5); Carbon Dioxide 19 mmol/L (22-29); Chloride 109 mmol/L (98-107); Creatinine Clr Calc Pharmacy 30.0814; Glucose 256 mg/dL (65-115); Osmolality Calculated 301 mOsm/kg (285-295); Potassium 3.9 mmol/L (3.5-5.1); Sodium 139 mmol/L (136-145)
--- NOTE | 2025-02-03 13:04 | CT_ITS ---
WS: [id number] CT ABDOMEN AND PELVIS NONCONTRAST HISTORY: right pyelonephritis TECHNIQUE: Imaging performed through the abdomen and pelvis. Coronal and sagittal reformats are submitted. All CT scans at [facility] use at least one of these dose optimization techniques: automated exposure control; mA and/or kV adjustment per patient size (includes targeted exams where dose is matched to clinical indication); or iterative reconstruction. DLP: 452.66 mGy.cm COMPARISON: None available. Lower thorax: Lung bases are clear. Visualized heart is normal. Small hiatal hernia. Liver: Normal size liver. No mass or bile duct dilatation. Gallbladder: Normally distended with cholelithiasis. No adjacent inflammation. Pancreas: Normal size and attenuation. Normal pancreatic duct. No pancreatitis or mass. Spleen: Normal. Adrenal glands: Normal. No mass. Right kidney: Moderate perinephric stranding and mildly enlarged kidney. No hydronephrosis. Mild wall thickening and stranding surrounding the ureter. There is several calcific densities in the RIGHT pelvis but these all appear to be external to the ureter. Left kidney: Normal size kidney with minimal stranding surrounding the kidney. There is a nonobstructing 6 mm calcification in the superior pole. Normal size ureter. Aorta: Mild atherosclerosis abdominal aorta with no aneurysm. No free fluid, intraperitoneal air or significant lymphadenopathy. GI tract: No GI tract obstruction. No appendicitis. No diverticulitis. Scattered diverticulosis in the distal colon. Suspect rectocele. Colon is low-lying at the level of the rectum. Abdominal wall: Small periumbilical hernia contains fat only. Pelvis: Prior hysterectomy. No free fluid or adenopathy. Negative urinary bladder. Osseous structures: Posterior lumbar fusion at L5-S1 with interbody spacer. CT/CT kidney stone [id number] IMPRESSION: 1. Mildly enlarged RIGHT kidney with moderate perinephric stranding. No hydron ephrosis. Suspect pyelonephritis or recently passed ureteral stone. There are s everal small calcific densities in the RIGHT pelvis but these all appear to be external from the ureter. 2. Nonobstructing upper pole LEFT 6 mm calcification. 3. Normal appendix. 4. Cholelithiasis without acute cholecystitis. 5. Mild diverticulosis without acute diverticulitis.
[2025-02-03] MEDS: metoprolol succinate ER (24 HR) 25 mg Tablet PO (13:57)
--- NOTE | 2025-02-03 17:46 | P.PN_ITS ---
Subjective 2 Subjective: Patient febrile to 102 Fahrenheit last afternoon. White blood cell count increasing at 17,000 today. Complaining of interval right flank pain. Medications: Reviewed: Yes Vitals/I&O/Wt Last Vital Signs Temp 97.7 F 02/03/25 16:00 Pulse 93 02/03/25 16:00 Resp 16 02/03/25 16:00 BP 113/60 02/03/25 16:00 Pulse Ox 97 02/03/25 16:00 O2 Del Method Room Air 02/03/25 11:01 02/03/25 02/03/25 02/03/25 06:59 14:59 22:59 Intake Total 1840 / 1840 Output Total 800 / 800 850 / 850 900 / 1750 Balance -800 / 3037.05 990 / 990 -900 / 90 Weight last 48 hrs Weight 64.954 kg Weight 64.319 kg Weight 61.235 kg Physical Exam 2 Narrative: General: No acute distress, AO x3 HEENT: PERRLA, pupils bilaterally equal and reactive, pallors not present Chest: Normal vesicular breath sounds, no added sounds, equal good air entry bilaterally CVS: S1-S2 regular, no murmurs, no tachycardia, no gallops, no rubs Abdomen: Soft, nontender, no organomegaly, bowel sounds present, tender to palpation over right flank. Neuro: No focal deficits, no facial deformity, AO x3, power 5/5 in all limbs Data 02/03/25 06:39 02/03/25 11:34 Micro: Microbiology 02/02/25 13:16 Blood Culture - Preliminary Blood NEGATIVE TO DATE 02/02/25 13:18 Blood Culture - Preliminary Blood NEGATIVE TO DATE 02/02/25 13:37 Urine Culture - Preliminary Urine,Clean Catch Gram Negative Rods A&P Assessment and plan 1. Urinary tract infection: Patient with hypotension and blood in the urine but hypotension did respond to fluids and she is not rate requiring pressors. I have low level suspicion for kidney stone as she has no flank tenderness. She will be admitted to the medical floor with additional fluid boluses and continued on Rocephin 1 g IV every 12 hours. 2. Dehydration: Additional fluid boluses hold antihypertensives for now 3. Primary hypertension: Typically on metoprolol and she states her heart rate tends to be high without it but runs 90 with the med. Hold metoprolol for now 4. Mixed hyperlipidemia: Start atorvastatin 20 mg daily due to history of stroke and LDL of 120 goal would be below 50 5. Type 2 diabetes mellitus with other circulatory complication, with long-term current use of insulin: Continue Amaryl and a diabetic diet 6. Pyelonephritis: Plan: February 03, 2025 Patient complains of interval development of right flank pain. White blood cell count increasing to 17,000. Febrile 102 Fahrenheit last evening. Concern for possibly obstructive pyelonephritis. CT of the abdomen and pelvis was ordered which showed a mildly enlarged right kidney with moderate perinephric stranding. Suspected pyelonephritis or a recently passed ureteral stone. There were several small calcific densities in the right pelvis which appeared to be external to the ureter. There is a nonobstructing upper pole 6 mm calcification. Cholelithiasis was noted without any signs of acute cholecystitis. Urine culture showing gram-negative rods. Patient's blood pressure were soft ranging 88-90 overnight which improved with IV fluid bolus. Will change ceftriaxone to cefepime empirically while awaiting urine culture results given rising white blood cell count. Changed to inpatient admission in view of pyelonephritis, need for IV fluids. PDMP PDMP Reviewed: Not Reviewed Attestations 2 Medical Necessity Statement*: Right pyelonephritis needing IV antibiotics, rising white blood cell count needs continued close monitoring. CT abdomen performed today Coding Level of Care Code Acute Code for Chg Fwd High MDM includes number and complexity of problems actively addressed during encounter, amount and/or complexity of data reviewed/ordered and described risk of complication, morbidity or mortality of management as documented Diagnoses Urinary tract infection N30.01 Hematuria presence: with hematuria Urinary tract infection type: acute cystitis Dehydration E86.0 Primary hypertension I10 Hypertension type: primary hypertension Mixed hyperlipidemia E78.2 Hyperlipidemia type: mixed hyperlipidemia Type 2 diabetes mellitus with other circulatory complication, with long-term current use of insulin E11.59; Z79.4 Diabetes mellitus type: type 2 Diabetes mellitus nursing home 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
[2025-02-03] MEDS: cefepime 1,000 mg SDV 1000 MG IVP (20:15)
[2025-02-03] MEDS: ondansetron 2 mg/ML SDV 2 mL 4 MG IVP (22:31)
[2025-02-04] VITALS (7 sets, daily range): BP systolic 95–120; BP diastolic 52–71; PULSE 81–88; RESP 14–16; TEMP 36.7–37.5; O2SAT 94–97
[2025-02-04 05:03] LABS: Hematocrit 33.5 % (36-47); Hemoglobin 10.70 g/dL (11.27-16.99); Mean Corpuscular HGB Conc 31.9 g/dL (30-55); Mean Corpuscular Hemoglobin 30.3 pg (27-33); Mean Corpuscular Volume 94.9 fl (85-98); Nucleated Red Blood Cells % 0 %; Platelet Count 191 10^3/cmm (157-399); Red Blood Count 3.53 10^6/uL (3.85-5.65); White Blood Count 11.00 10^3/uL (3.29-11.43)
[2025-02-04 05:21] LABS: Alanine Aminotransferase 10 U/L (0-33); Albumin Level 3.2 g/dL (3.5-5.2); Alkaline Phosphatase 53 U/L (35-105); Anion Gap 14.8 (5-19); Aspartate Amino Transferase 17 U/L (0-32); Blood Urea Nitrogen 20 mg/dL (8-23); Calcium 8.6 mg/dL (8.5-10.5); Carbon Dioxide 19 mmol/L (22-29); Chloride 108 mmol/L (98-107); Creatinine Clr Calc Pharmacy 30.0814; Globulin 3.3 g/dL (1.3-4.6); Glucose 66 mg/dL (65-115); Osmolality Calculated 287 mOsm/kg (285-295); Potassium 3.8 mmol/L (3.5-5.1); Sodium 138 mmol/L (136-145); Total Protein 6.5 g/dL (6.6-8.7)
[2025-02-04] MEDS: cefepime 1,000 mg SDV 1000 MG IVP (08:55)
[2025-02-04] MEDS: metoprolol succinate ER (24 HR) 25 mg Tablet PO (08:55)
--- NOTE | 2025-02-04 15:01 | P.DS_ITS ---
Discharge Providers Date of Admission: 02/03/25 10:58 Date of Discharge: February 04, 2025 Attending Provider at Admission: Marty Luque MD Attending Provider at Discharge: Harika Mg MD Primary Care Provider: EVELYNE Figueroa Diagnoses at Discharge Discharge Diagnosis 1. Urinary tract infection: 2. Dehydration: 3. Primary hypertension: 4. Mixed hyperlipidemia: 5. Type 2 diabetes mellitus with other circulatory complication, with long-term current use of insulin: 6. Pyelonephritis: Reason for Visit Reason for Visit: N/V [facility] Hospital Course Hospital Course 74 year old female with diabetes and history of right-sided stroke with left hemiplegia 2019 that fully recovered was admitted to the hospital on February 02, 2025 with nausea vomiting dysuria. Patient stated that she had been having some difficulty voiding with increased training for a month preceding the onset of symptoms. 2 to 3 days prior to admission she started having increased frequency of micturition and came in to the emergency room with the symptoms. She was hypotensive initially upon arrival with a blood pressure of 80/50 and tachycardic. Her hypotension improved with IV fluid resuscitation. She started treatment with IV ceftriaxone during the course of her admission. CT of the abdomen and pelvis was performed which showed a mildly enlarged right kidney with moderate perinephric stranding. There was no hydronephrosis. With right flank tenderness and CT findings, clinical diagnosis is that of acute pyelonephritis. Based on CT, it appears a right-sided stone may have recently passed. There was a nonobstructing upper pole left 6 mm calcification seen. Incidentally noted cholelithiasis without acute cholecystitis. Urine culture showed E. coli which was pansensitive except for tetracycline. Patient improved clinically with treatment, WBC count trended down from 17,000-11,000. She became afebrile. She is being discharged today feeling symptomatically much better. Transitioned to oral ciprofloxacin at the time of discharge for 10 days to complete treatment for pyelonephritis. Physical Exam Narrative: General: No acute distress, AO x3 HEENT: PERRLA, pupils bilaterally equal and reactive, pallors not present Chest: Normal vesicular breath sounds, no added sounds, equal good air entry bilaterally CVS: S1-S2 regular, no murmurs, no tachycardia, no gallops, no rubs Abdomen: Soft, nontender, no organomegaly, bowel sounds present Neuro: No focal deficits, no facial deformity, AO x3, power 5/5 in all limbs Discharge Data Studies Completed and Pending Completed Studies During Hospitalization Category Date Time Status CT abdomen renal stone [CT kidney stone [id number]] Routine Cat Scan 02/03/25 13:04 Completed XR chest 1V portable [id number] Stat Exams 02/02/25 13:05 Completed Pending at discharge Category Date Time Status Blood Culture Stat Lab 02/02/25 13:16 Results Radiology Impressions Chest X-Ray 02/02/25 13:05 IMPRESSION: No acute cardiopulmonary process. Abdomen/Pelvis CT 02/03/25 13:04 IMPRESSION: 1. Mildly enlarged RIGHT kidney with moderate perinephric stranding. No hydronephrosis. Suspect pyelonephritis or recently passed ureteral stone. There are several small calcific densities in the RIGHT pelvis but these all appear to be external from the ureter. 2. Nonobstructing upper pole LEFT 6 mm calcification. 3. Normal appendix. 4. Cholelithiasis without acute cholecystitis. 5. Mild diverticulosis without acute diverticulitis. Laboratory Results WBC 11.00 10^3/uL (3.29-11.43) 02/04/25 04:23 Corrected WBC Cancelled 02/03/25 03:10 RBC 3.53 10^6/uL (3.85-5.65) L 02/04/25 04:23 Hgb 10.70 g/dL (11.27-16.99) L 02/04/25 04:23 Hct 33.5 % (36-47) L 02/04/25 04:23 MCV 94.9 fl (85-98) 02/04/25 04:23 MCH 30.3 pg (27-33) 02/04/25 04:23 MCHC 31.9 g/dL (30-55) D 02/04/25 04:23 RDW 12.5 % (12.1-15.1) 02/04/25 04:23 Plt Count 191 10^3/cmm (157-399) 02/04/25 04:23 MPV 9.7 fL (7.4-10.4) 02/04/25 04:23 Gran % Cancelled 02/03/25 03:10 Neut % (Auto) 73.7 % 02/04/25 04:23 Lymph % (Auto) 17.2 % 02/04/25 04:23 [place] % (Auto) 7.1 % 02/04/25 04:23 Eos % (Auto) 1.5 % 02/04/25 04:23 Baso % (Auto) 0.2 % 02/04/25 04:23 Neut # (Auto) 8.12 10^3/uL (1.8-7.7) H 02/04/25 04:23 Lymph # (Auto) 1.9 10^3/uL (0.8-4.8) 02/04/25 04:23 [place] # (Auto) 0.8 10^3/uL (0.2-0.9) 02/04/25 04:23 Eos # (Auto) 0.2 10^3/uL (0.0-0.8) 02/04/25 04:23 Baso # (Auto) 0.0 10^3/uL (0.0-0.1) 02/04/25 04:23 Absolute Gran (auto) Cancelled 02/03/25 03:10 Nucleated RBC % (auto) 0 % 02/04/25 04:23 Nucleated RBCs # 0.0 /100WBC 02/04/25 04:23 PT 12.80 SECONDS (12.1-14.9) 02/02/25 13:18 INR 0.90 (0.8-1.2) 02/02/25 13:18 APTT 45.2 SECONDS (23.9-36.7) H 02/02/25 13:18 Specimen Type Arterial 02/02/25 13:46 Sample Site Brachial, left 02/02/25 13:46 ABG pH 7.50 (7.35-7.45) H 02/02/25 13:46 ABG pCO2 26.9 mmHg (35-45) L 02/02/25 13:46 ABG pO2 86.4 mmHg (80.0-100.0) 02/02/25 13:46 ABG PO2/FiO2 Ratio 411 02/02/25 13:46 ABG HCO3 21.1 mmol/L (22-26) L 02/02/25 13:46 ABG O2 Saturation 98.0 02/02/25 13:46 ABG Base Excess -1.1 mmol/L (-2.0-2.0) 02/02/25 13:46 Thanh Test N/a 02/02/25 13:46 A-a O2 Gradient 3.7 mmHg (5-10) L 02/02/25 13:46 Hematocrit 35.3 % (37-47) L 02/02/25 13:46 Hgb O2 Saturation 96.1 % (95-100) 02/02/25 13:46 Carboxyhemoglobin 1.1 %THgb (0.4-20.1) 02/02/25 13:46 Methemoglobin 0.8 % (0.4-1.5) 02/02/25 13:46 Total Hemoglobin 11.5 g/dL (12-16) L 02/02/25 13:46 Sodium 140.0 mmol/L (131-143) 02/02/25 13:46 Potassium 3.5 mmol/L (3.5-5.0) 02/02/25 13:46 Glucose 203.0 mg/dL (70-115) H 02/02/25 13:46 Ionized Calcium 1.1 mmol/L (1.1-1.4) 02/02/25 13:46 O2 Delivery Device Room air 02/02/25 13:46 FiO2 21.0 % 02/02/25 13:46 Spring Assembler ID [id number] 02/02/25 13:46 Sodium 138 mmol/L (136-145) 02/04/25 04:23 Potassium 3.8 mmol/L (3.5-5.1) 02/04/25 04:23 Chloride 108 mmol/L (98-107) H 02/04/25 04:23 Carbon Dioxide 19 mmol/L (22-29) L 02/04/25 04:23 Anion Gap 14.8 (5-19) 02/04/25 04:23 BUN 20 mg/dL (8-23) 02/04/25 04:23 Creatinine 1.5 mg/dL (0.5-0.9) H 02/04/25 04:23 GFR Calculation Not Reportable 02/04/25 04:23 Glucose 66 mg/dL (65-115) 02/04/25 04:23 POC Glucose 70 mg/dL (70-110) 02/04/25 06:13 Calculated Osmolality 287 mOsm/kg (285-295) 02/04/25 04:23 Lactic Acid 1.7 mmol/L (0.5-2.2) 02/02/25 13:18 Calcium 8.6 mg/dL (8.5-10.5) 02/04/25 04:23 Magnesium 2.3 mg/dL (1.7-2.3) 02/02/25 13:18 Total Bilirubin 0.2 mg/dL (0.15-1.2) 02/04/25 04:23 AST 17 U/L (0-32) 02/04/25 04:23 ALT 10 U/L (0-33) 02/04/25 04:23 Alkaline Phosphatase 53 U/L (35-105) 02/04/25 04:23 Troponin T Baseline 19 ng/L (0-10) H 02/02/25 13:18 Troponin T 120 Minute 14.76 ng/L (0-10) H 02/02/25 15:07 Delta Troponin T -4.24 ABS# (0-10) L 02/02/25 15:07 Troponin T Hi Sens 6Hr 23.21 ng/L (0-10) H 02/02/25 19:49 Troponin T Hi Sens 6Hr Delta 4.21 ng/L (0-12) 02/02/25 19:49 Total Protein 6.5 g/dL (6.6-8.7) L 02/04/25 04:23 Albumin 3.2 g/dL (3.5-5.2) L 02/04/25 04:23 Globulin 3.3 g/dL (1.3-4.6) 02/04/25 04:23 TSH 1.76 uIU/mL (0.27-4.20) 02/02/25 13:18 Urine Color [place] (Yellow) A 02/02/25 13:37 Urine Appearance Cloudy (CLEAR) A 02/02/25 13:37 Urine pH 7.0 (5-7) 02/02/25 13:37 Ur Specific [place] 1.022 (1.005-1.030) 02/02/25 13:37 Urine Protein 1+ (Negative) A 02/02/25 13:37 Urine Glucose (UA) 3+ (Normal) H 02/02/25 13:37 Urine Ketones Trace (Negative) 02/02/25 13:37 Urine Blood 3+ (Negative) A 02/02/25 13:37 Urine Nitrate Negative (Negative) 02/02/25 13:37 Urine Bilirubin Negative (Negative) 02/02/25 13:37 Urine Urobilinogen 1.0 mg/dL (Negative) 02/02/25 13:37 Ur Leukocyte Esterase 2+ (Negative) A 02/02/25 13:37 Urine RBC >100 /hpf (0-2) H 02/02/25 13:37 Urine WBC >100 /hpf (0-5) H 02/02/25 13:37 Ur Squamous Epith Cells 0-5 /hpf (0-5) 02/02/25 13:37 Amorphous Sediment Not Reportable 02/02/25 13:37 Urine Bacteria 4+ /hpf (NONE) H 02/02/25 13:37 Hyaline Casts 0-4 /lpf H 02/02/25 13:37 Vitals Last Vital Signs Temp 98.1 F 02/04/25 11:21 Pulse 83 02/04/25 11:21 Resp 16 02/04/25 11:21 BP 120/71 02/04/25 11:21 Pulse Ox 96 02/04/25 11:21 O2 Del Method Room Air 02/04/25 10:27 Discharge Plan Discharge Patient Disposition: Home Condition: Stable Prescriptions: New ciprofloxacin HCl 500 mg tablet 500 mg PO Q12H 10 Days Qty: 20 0RF ondansetron HCl 4 mg tablet 4 mg PO Q8H PRN (Reason: nausea and vomiting) 5 Days Qty: 15 0RF Continued aspirin 81 mg tablet,delayed release (DR/EC) 81 mg PO DAILY ferrous sulfate 325 mg (65 mg iron) tablet 325 mg PO DAILY cholecalciferol (vitamin D3) 25 mcg (1,000 unit) capsule 25 mcg PO DAILY fenofibrate 160 mg tablet 160 mg PO DAILY Qty: 90 1RF glimepiride 2 mg tablet 2 mg PO BID 90 Days Qty: 180 1RF Jardiance 25 mg tablet 25 mg PO QAM Qty: 90 1RF clopidogrel [Plavix] 75 mg tablet 75 mg PO DAILY 90 Days Qty: 90 1RF metoprolol succinate 25 mg tablet extended release 24 hr 25 mg PO DAILY 90 Days Qty: 90 1RF triamcinolone acetonide 0.5 % cream 1 applic topical TID Qty: 60 1RF alendronate 70 mg tablet See Rx Instructions .ROUTE .COMPLEX Qty: 12 0RF Dose Instruction: Take 1 tablet by mouth once a week Rx Instructions: Take 1 tablet by mouth once a week semaglutide 1 mg/dose (4 mg/3 mL) pen injector See Rx Instructions .ROUTE .COMPLEX Qty: 3 2RF Dose Instruction: INJECT 0.25MG SUBCUTANEOUSLY WEEKLY FOR 4 WEEKS; THEN 0.5MG WEEKLY Rx Instructions: INJECT 1MG SUBCUTANEOUSLY WEEKLY acetaminophen [Tylenol Extra Strength] 500 mg Tablet 1,000 mg PO QID PRN (Reason: Fever Or Pain) PreserVision AREDS 2,148 mcg-113 mg-45 mg-17.4mg Tablet 2 tab PO BID Rx Instructions: administer with AM and PM meals Discharge Order = DC NOW: Discharge Order (Routine); Ordered 02/04/25 Ordered By: Harika Mg Referrals: Marian Zafar FNP [Primary Care Provider, [facility]] - 02/18/25 12:00 pm Referral Note: Patient Instructions: Ciprofloxacin (By mouth), Ondansetron (By mouth), Urinary Tract Infection in Women (GEN), Opioid Safety, Patient Portal & Elvi Instructions Discharge Attestations Time Spent in Discharge Care*: greater than 30 min Quality Metrics Clinical Quality Measures [ No reported AMI, CVA or VTE this stay] Coding Level of Care Code Acute Code for Chg Fwd Diagnoses Urinary tract infection N30.01 Hematuria presence: with hematuria Urinary tract infection type: acute cystitis Dehydration E86.0 Primary hypertension I10 Hypertension type: primary hypertension Mixed hyperlipidemia E78.2 Hyperlipidemia type: mixed hyperlipidemia Type 2 diabetes mellitus with other circulatory complication, with long-term cur rent use of insulin E11.59; Z79.4 Diabetes mellitus type: type 2 Diabetes mellitus fpc insulin 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
== END 2025-02-04 10:45 | disposition home or self-care (01) | DRG 690 ==
LOC: ER 14:28 → ER IP 16:11 → MEDSURG 18:40
PROVIDERS: Admitting Provider Internal Medicine; Emergency Provider Physician Assistant; PCP Nurse Practitioner Family; Visit Provider Student in an Organized Health Care Education/Training Program
DX: N12 Tubulo-interstitial nephritis, not specified as acute or chronic (principal); I69.954 Hemiplegia and hemiparesis following unspecified cerebrovascular disease affecting left non-dominant side; Z16.29 Resistance to other single specified antibiotic; E86.0 Dehydration; I10 Essential (primary) hypertension; E78.2 Mixed hyperlipidemia; E11.59 Type 2 diabetes mellitus with other circulatory complications; I95.9 Hypotension, unspecified; R00.0 Tachycardia, unspecified; K80.20 Calculus of gallbladder without cholecystitis without obstruction; B96.20 Unspecified Escherichia coli [E. coli] as the cause of diseases classified elsewhere; M81.0 Age-related osteoporosis without current pathological fracture; Z79.4 Long term (current) use of insulin; Z79.82 Long term (current) use of aspirin; Z79.84 Long term (current) use of oral hypoglycemic drugs; Z79.02 Long term (current) use of antithrombotics/antiplatelets; Z79.85 Long-term (current) use of injectable non-insulin antidiabetic drugs
CPT/HCPCS: 36415; 36416; 36600; 71045; 74176; 80048; 80051; 80053; 81001; 82330; 82805; 82962; 83605; 83735; 84443; 84484; 85025; 85610; 85730; 87040; 87077; 87086; 87186; 93005; 96361; 96372; 96374; 96375; 99285; G0378; J0692; J0696; J1815; J2405; J3480; J7030; J9999

== ENCOUNTER 2025-02-18 08:11 | Outpatient (CLI) | payer MEDICARE, SELFPAY ==
--- NOTE | 2025-02-18 08:16 | MM_ITS ---
WS: [id number] BILATERAL 3D TOMOSYNTHESIS DIGITAL SCREENING MAMMOGRAPHY WITH CAD CLINICAL INFORMATION: SCREENING HISTORY: Screening mammogram. No current complaints. COMPARISON: 2023 TECHNIQUE: Bilateral CC and MLO views. FINDINGS: Scattered fibroglandular densities bilaterally. No suspicious focal mass, asymmetry, calcifications, or architectural distortion. No evidence of malignancy. MM/MM scr BI tomosynthesis [id number] IMPRESSION: DENSITY: There are scattered areas of fibroglandular density. BI-RADS: 1 - Negative. FOLLOW UP: 1 Year Follow-up Recommend return to annual screening mammography.
== END 2025-02-18 08:12 | disposition home or self-care (01) ==
LOC: RAD 08:12
PROVIDERS: PCP Nurse Practitioner Family; Visit Provider Nurse Practitioner Family
DX: Z12.31 Encounter for screening mammogram for malignant neoplasm of breast (principal); N30.01 Acute cystitis with hematuria; D64.9 Anemia, unspecified
CPT/HCPCS: 77063; 77067; 80053; 81003; 85025; 87086

== ENCOUNTER → 2025-05-06 08:49 | Outpatient (BNVA) | payer MEDICARE, SELFPAY | PROVIDERS: PCP Nurse Practitioner Family; Visit Provider Nurse Practitioner Family | DX: E11.59 Type 2 diabetes mellitus with other circulatory complications (principal); M81.0 Age-related osteoporosis without current pathological fracture; Z79.4 Long term (current) use of insulin; I65.23 Occlusion and stenosis of bilateral carotid arteries; I10 Essential (primary) hypertension | CPT/HCPCS: 80053; 80061; 82306; 82607; 83036; 83721; 83735; 84443; 85025 ==